=== PATIENT | male | born 1975 | race Caucasian/White ===

== ENCOUNTER 2017-05-20 14:38 | Emergency (ER) | payer OTHER ==
[~2017-05-20] VITALS: Ht 188 cm; Wt 90.7 kg
[2017-05-20 14:38] VITALS: BP 135/71
--- NOTE | 2017-05-20 14:45 | NUR ---
DR BENTON AT BEDSIDE FOR EVAL
[2017-05-20] MEDS ORDERED: HYDROCODONE/APAP 10/325MG 1 EA TABLET ONE (14:53)
[2017-05-20] MEDS ORDERED: ONDANSETRON 4 MG TAB.RAPDIS ONE (14:54)
--- NOTE | 2017-05-20 14:57 | NUR ---
XRAY DONE AT BS.
[2017-05-20] MEDS ORDERED: HYDROCODONE/APAP 10/325MG 1 EA TABLET PO ONE (15:00)
[2017-05-20] MEDS ORDERED: ONDANSETRON 4 MG TAB.RAPDIS SL ONE (15:00)
[2017-05-20] MEDS ORDERED: KETOROLAC TROMETHAMINE INJ 60 MG/2 ML VIAL IM ONE ×2 (15:28→15:30)
== END 2017-05-20 15:41 | disposition home or self-care (01) ==
LOC: ER 14:43
DX: S60.121A Contusion of right index finger with damage to nail, initial encounter (principal); J45.909 Unspecified asthma, uncomplicated; S60.221A Contusion of right hand, initial encounter; F17.200 Nicotine dependence, unspecified, uncomplicated; W22.8XXA Striking against or struck by other objects, initial encounter; Y93.89 Activity, other specified; Y99.8 Other external cause status; Y92.39 Other specified sports and athletic area as the place of occurrence of the external cause
CPT/HCPCS: 73130; 96372; 99284; 99406; A4606; J1885; Q0162; Z7610